=== PATIENT | male | born 1945 | race African-American/Black ===

== ENCOUNTER → 2016-07-02 | Outpatient (CLI) | payer MEDICARE, OTHER ==
[~2016-07-02] MED LIST: PRIN5TAB PO; TAMS0.4C67 PO; TRAM100T19 PO
[2016-07-02 09:39] LABS: BICARBONATE 28.1 MEQ/L (21.0-32.0); POTASSIUM 5.1 MEQ/L (3.5-5.1)
== END ==
LOC: CLAB 08:38
PROVIDERS: ATTEND Internal Medicine Nephrology
DX: N18.4 Chronic kidney disease, stage 4 (severe) (principal)
CPT/HCPCS: 36415; 80048

== ENCOUNTER → 2016-07-09 | Outpatient (CLI) | payer MEDICARE, OTHER ==
[2016-07-09 08:24] LABS: HEMATOCRIT 37.6 % (39.0-51.0); MEAN CELL VOLUME 95.2 FL (80.0-100.0); MEAN CORPUSCULAR HEMOGLOBIN 32.6 PG (27.0-34.0); MEAN CORPUSCULAR HGB CONC 34.3 % (32.0-36.0); PLATELET COUNT 243 TH/MM3 (150-450); RED BLOOD COUNT 3.95 MIL/MM3 (4.50-5.90); RED CELL DISTRIBUTION WIDTH 17.4 % (11.6-17.2); REVIEW FLAG FINAL; WHITE BLOOD COUNT 5.7 TH/MM3 (4.0-11.0)
[2016-07-09 08:29] LABS: BLOOD, URINE MOD (NEG); COMMENT (UR) CULT NOT INDICATED; CULTURE IF INDICATED CULT NOT INDICATED; GLUCOSE,URINE NEG (NEG); KETONE, URINE NEG (NEG); MUCUS URINE FEW /lpf (OCC); NITRITE,URINE NEG (NEG); PH, URINE 5.5 (5.0-8.5); SQUAMOUS EPITHELIAL CELL URINE <1 /hpf (0-5); URINE COLOR LIGHT-YELLOW (YELLW/STRAW)
[2016-07-09 08:46] LABS: BICARBONATE 24.8 MEQ/L (21.0-32.0); POTASSIUM 4.6 MEQ/L (3.5-5.1)
== END ==
LOC: CLAB 07:57
PROVIDERS: ATTEND Internal Medicine Nephrology
DX: N18.4 Chronic kidney disease, stage 4 (severe) (principal)
CPT/HCPCS: 36415; 80069; 81001; 83970; 85027

== ENCOUNTER → 2016-08-25 | Outpatient (CLI) | payer MEDICARE, OTHER ==
[~2016-08-25] MED LIST changes: +HYDR12.57 PO; +SODI325T PO; +TAMS5CAP PO
[2016-08-25 09:02] LABS: HEMATOCRIT 36.2 % (39.0-51.0); MEAN CELL VOLUME 95.1 FL (80.0-100.0); MEAN CORPUSCULAR HEMOGLOBIN 31.9 PG (27.0-34.0); MEAN CORPUSCULAR HGB CONC 33.6 % (32.0-36.0); PLATELET COUNT 197 TH/MM3 (150-450); RED BLOOD COUNT 3.81 MIL/MM3 (4.50-5.90); RED CELL DISTRIBUTION WIDTH 16.5 % (11.6-17.2); REVIEW FLAG FINAL; WHITE BLOOD COUNT 5.9 TH/MM3 (4.0-11.0)
[2016-08-25 09:29] LABS: BICARBONATE 22.7 MEQ/L (21.0-32.0); POTASSIUM 4.8 MEQ/L (3.5-5.1)
== END ==
LOC: CLAB 08:35
PROVIDERS: ATTEND Internal Medicine Nephrology
DX: E55.9 Vitamin D deficiency, unspecified (principal); N18.4 Chronic kidney disease, stage 4 (severe)
CPT/HCPCS: 36415; 80069; 82306; 83970; 85027

== ENCOUNTER → 2016-09-24 | Outpatient (CLI) | payer MEDICARE, OTHER ==
[2016-09-24 07:44] LABS: HEMATOCRIT 36.2 % (39.0-51.0); MEAN CELL VOLUME 94.9 FL (80.0-100.0); MEAN CORPUSCULAR HEMOGLOBIN 32.6 PG (27.0-34.0); MEAN CORPUSCULAR HGB CONC 34.3 % (32.0-36.0); PLATELET COUNT 194 TH/MM3 (150-450); RED BLOOD COUNT 3.82 MIL/MM3 (4.50-5.90); RED CELL DISTRIBUTION WIDTH 16.4 % (11.6-17.2); REVIEW FLAG FINAL; WHITE BLOOD COUNT 4.4 TH/MM3 (4.0-11.0)
[2016-09-24 08:04] LABS: BICARBONATE 25.5 MEQ/L (21.0-32.0); POTASSIUM 5.8 MEQ/L (3.5-5.1)
[2016-09-24 08:08] LABS: BLOOD, URINE MOD (NEG); GLUCOSE,URINE NEG (NEG); KETONE, URINE NEG (NEG); NITRITE,URINE NEG (NEG); PH, URINE 5.5 (5.0-8.5); URINE COLOR LIGHT-YELLOW (YELLW/STRAW)
== END ==
LOC: CLAB 07:16
PROVIDERS: ATTEND Internal Medicine Nephrology
DX: N18.4 Chronic kidney disease, stage 4 (severe) (principal)
CPT/HCPCS: 36415; 80069; 81001; 82570; 83970; 84156; 85027

== ENCOUNTER → 2016-09-27 | Outpatient (CLI) | payer MEDICARE, OTHER ==
[2016-09-27 09:15] LABS: BICARBONATE 24.8 MEQ/L (21.0-32.0); POTASSIUM 5.3 MEQ/L (3.5-5.1)
== END ==
LOC: CLAB 08:11
PROVIDERS: ATTEND Physician Assistant
DX: E87.5 Hyperkalemia (principal); N18.4 Chronic kidney disease, stage 4 (severe)
CPT/HCPCS: 36415; 80048

== ENCOUNTER → 2016-10-07 | Outpatient (CLI) | payer MEDICARE, OTHER ==
[2016-10-07 09:00] LABS: HEMATOCRIT 37.2 % (39.0-51.0); MEAN CELL VOLUME 94.6 FL (80.0-100.0); MEAN CORPUSCULAR HEMOGLOBIN 31.9 PG (27.0-34.0); MEAN CORPUSCULAR HGB CONC 33.7 % (32.0-36.0); PLATELET COUNT 210 TH/MM3 (150-450); RED BLOOD COUNT 3.93 MIL/MM3 (4.50-5.90); RED CELL DISTRIBUTION WIDTH 16.1 % (11.6-17.2); REVIEW FLAG FINAL; WHITE BLOOD COUNT 5.2 TH/MM3 (4.0-11.0)
[2016-10-07 09:04] LABS: BICARBONATE 25.2 MEQ/L (21.0-32.0); POTASSIUM 4.9 MEQ/L (3.5-5.1)
[2016-10-07 10:09] LABS: BLOOD, URINE SMALL (NEG); COMMENT (UR) CULT NOT INDICATED; CULTURE IF INDICATED CULT NOT INDICATED; GLUCOSE,URINE NEG (NEG); KETONE, URINE NEG (NEG); MUCUS URINE FEW /lpf (OCC); NITRITE,URINE NEG (NEG); PH, URINE 5.5 (5.0-8.5); URINE COLOR LIGHT-YELLOW (YELLW/STRAW)
== END ==
LOC: CLAB 08:23
PROVIDERS: ATTEND Internal Medicine Nephrology
DX: E87.5 Hyperkalemia (principal); N18.4 Chronic kidney disease, stage 4 (severe)
CPT/HCPCS: 36415; 80069; 81001; 85027

== ENCOUNTER → 2016-10-18 | Outpatient (CLI) | payer MEDICARE, OTHER ==
[2016-10-18 09:21] LABS: BICARBONATE 23.4 MEQ/L (21.0-32.0); POTASSIUM 4.9 MEQ/L (3.5-5.1)
== END ==
LOC: CLAB 08:21
PROVIDERS: ATTEND Internal Medicine Nephrology
DX: E87.5 Hyperkalemia (principal); N18.4 Chronic kidney disease, stage 4 (severe)
CPT/HCPCS: 36415; 80048

== ENCOUNTER → 2016-11-26 | Outpatient (CLI) | payer MEDICARE, OTHER ==
[2016-11-26 08:00] LABS: HEMATOCRIT 36.4 % (39.0-51.0); MEAN CELL VOLUME 94.4 FL (80.0-100.0); MEAN CORPUSCULAR HEMOGLOBIN 32.1 PG (27.0-34.0); PLATELET COUNT 186 TH/MM3 (150-450); RED BLOOD COUNT 3.86 MIL/MM3 (4.50-5.90); RED CELL DISTRIBUTION WIDTH 15.8 % (11.6-17.2); REVIEW FLAG FINAL; WHITE BLOOD COUNT 5.2 TH/MM3 (4.0-11.0)
[2016-11-26 08:04] LABS: BLOOD, URINE SMALL (NEG); COMMENT (UR) CULT NOT INDICATED; CULTURE IF INDICATED CULT NOT INDICATED; GLUCOSE,URINE NEG (NEG); KETONE, URINE NEG (NEG); MUCUS URINE FEW /lpf (OCC); NITRITE,URINE NEG (NEG); PH, URINE 5.5 (5.0-8.5); SQUAMOUS EPITHELIAL CELL URINE <1 /hpf (0-5); URINE COLOR LIGHT-YELLOW (YELLW/STRAW)
[2016-11-26 08:21] LABS: BICARBONATE 18.4 MEQ/L (21.0-32.0); POTASSIUM 5.3 MEQ/L (3.5-5.1)
== END ==
LOC: CLAB 07:24
PROVIDERS: ATTEND Physician Assistant
DX: E55.9 Vitamin D deficiency, unspecified (principal); N18.4 Chronic kidney disease, stage 4 (severe)
CPT/HCPCS: 36415; 80069; 81001; 82306; 82570; 83970; 84156; 85027

== ENCOUNTER → 2016-12-30 | Outpatient (CLI) | payer MEDICARE, OTHER ==
[~2016-12-30] MED LIST changes: +ACET-822 PO; +ALLO100T PO; +CHOL1CAP34 PO; +DILT120T PO; +HYDR25TA5 PO; -PRIN5TAB PO; +SODI650T PO; -TAMS0.4C67 PO; -TRAM100T19 PO; +TUMS500C CHEW
[2016-12-30 10:26] LABS: HEMATOCRIT 35.5 % (39.0-51.0); MEAN CELL VOLUME 94.3 FL (80.0-100.0); MEAN CORPUSCULAR HGB CONC 32.8 % (32.0-36.0); PLATELET COUNT 200 TH/MM3 (150-450); RED BLOOD COUNT 3.76 MIL/MM3 (4.50-5.90); RED CELL DISTRIBUTION WIDTH 16.5 % (11.6-17.2); REVIEW FLAG FINAL; WHITE BLOOD COUNT 6.8 TH/MM3 (4.0-11.0)
[2016-12-30 10:32] LABS: BACTERIA, URINE OCC /hpf; BLOOD, URINE MOD (NEG); COMMENT (UR) CULT NOT INDICATED; CULTURE IF INDICATED CULT NOT INDICATED; GLUCOSE,URINE NEG (NEG); KETONE, URINE NEG (NEG); MUCUS URINE FEW /lpf (OCC); NITRITE,URINE NEG (NEG); PH, URINE 5.5 (5.0-8.5); SQUAMOUS EPITHELIAL CELL URINE <1 /hpf (0-5); URINE COLOR YELLOW (YELLW/STRAW)
[2016-12-30 10:54] LABS: BICARBONATE 25.6 MEQ/L (21.0-32.0); POTASSIUM 4.6 MEQ/L (3.5-5.1)
== END ==
LOC: CLAB 10:03
PROVIDERS: ATTEND Physician Assistant
DX: N18.5 Chronic kidney disease, stage 5 (principal)
CPT/HCPCS: 36415; 80069; 81001; 82570; 84156; 85027

== ENCOUNTER → 2017-01-04 | Day surgery (SDC) | payer MEDICARE, OTHER ==
[~2017-01-04] VITALS: Ht 180.3 cm; Wt 80.6 kg
[~2017-01-04] MED LIST changes: +ACETAMINOPHEN 1000 MG/100 ML VIAL IV ONE; +ACETAMINOPHEN/HYDROcodone 325 MG/7.5 MG TAB ONE; +ACETAMINOPHEN/HYDROcodone 325 MG/7.5 MG TAB PO PRN; +BUPIVACAINE/EPINEPHRINE 0.5% PF 30 ML VIAL INFIL ONE; +CHLORHEXIDINE GLUCONATE 2 % 1 PACK (2 CLOTHS) TOPICAL PRN; +DO NOT ADM ANY ANTICOAGULANT DRUGS PRN; +FAMOTIDINE 20 MG/2 ML VIAL ONE; +HEPARIN SODIUM - SQ 10,000 UNITS/ML VIAL OTHER ONE; -HYDR12.57 PO; +INSULIN HUMAN REGULAR 1,000 UNITS/10 ML VIAL SQ PRN; +LACTATED RINGER'S 1000 ML INJ 1,000 ML IV ONE; +LACTATED RINGER'S 1000 ML IV PRN; +METOPROLOL TARTRATE 25 MG TAB PO PRN; +MORPHINE SULFATE 4 MG/ML INJ ONE; +ONDANSETRON HCL 4 MG/2 ML VIAL IV PUSH ONE; +POVIDONE IODINE 5% (ANTISEPSIS KIT) 4 APPLICATIONS EACH NARE PRN; +PROPOFOL 200 MG/20 ML AMP IV ONE; -SODI325T PO; +SODIUM CHLORID 0.9% 500 ML IV PRN; +SODIUM CHLORIDE 0.9% INJ 100 ML ONE; +ceFAZolin 1,000 MG/NS 100 ML IV SCH; +ceFAZolin INJ 1,000 MG VIAL ONE
[2017-01-04 12:28] VITALS: BP 143/87; PULSE 74; RESP 18; TEMP 98; O2SAT 99
[2017-01-04 12:45] LABS: BASOPHIL # 0.1 TH/MM3 (0-0.2); EOSINOPHIL # 0.1 TH/MM3 (0-0.4); EOSINOPHIL % 2.2 % (0.0-4.0); HEMO FLAGS DIFF FINAL; LYMPH % 21.7 % (9.0-44.0); LYMPHOCYTE # 1.3 TH/MM3 (1.0-4.8); MEAN CELL VOLUME 94.4 FL (80.0-100.0); MEAN CORPUSCULAR HEMOGLOBIN 32.3 PG (27.0-34.0); MEAN CORPUSCULAR HGB CONC 34.2 % (32.0-36.0); NEUT % 69.1 % (16.0-70.0); PLATELET COUNT 215 TH/MM3 (150-450); RED CELL DISTRIBUTION WIDTH 16.5 % (11.6-17.2); WHITE BLOOD COUNT 5.9 TH/MM3 (4.0-11.0)
--- NOTE | 2017-01-04 13:16 | EKG ---
Date Performed: 01/04/2017 Time Performed: 11:53:31 PTAGE: 71 years EKG: Sinus rhythm WITH MARKED SINUS ARRHYTHMIA BORDERLINE ECG PREVIOUS TRACING : 08/30/2013 09.04 Compared to prior tracing no significant change DOCTOR: Enrique Gale Interpretating Date/Time 01/04/2017 13:16:06
[2017-01-04 16:51] VITALS: BP 132/84; PULSE 80; RESP 20; TEMP 96.8; O2SAT 99
--- NOTE | 2017-01-04 23:33 | MP ---
cc: SWATHI AARON M.D. DATE OF SURGERY: 01/04/2017 PREOPERATIVE DIAGNOSIS: Chronic disease with need for permanent hemodialysis access. POSTOPERATIVE DIAGNOSIS Chronic disease with need for permanent hemodialysis access. SURGEON Swathi Aaron MD. [employer] IN[employer]CTOR VALERIA Mosley ANESTHESIA Local MAC DESCRIPTION OF OPERATIVE PROCEDURE: With the patient in the supine position and under IV sedation the right arm was prepped and draped in sterile fashion. One gram of Ancef was administered intravenously and following a protocol time-out, the skin and subcutaneous tissue along with the proposed incisional area, preemptively infiltrated with 0.5% Marcaine with epinephrine. A curvilinear incision was performed along the medial supra-antecubital region through which the cephalic vein and brachial artery were circumferentially mobilized. The vein was ligated distally with 4-0 silk, transected proximal to the ligature, spatulated on end, flushed with heparinized saline and occluded with Yasargil clip. The brachial artery was occluded proximally and distally with Yasargil clips. A vertical arteriotomy was performed along the anterolateral surface. The artery was flushed proximally and distally with heparinized saline. An end-to-side anastomosis was accomplished between the vein and arteriotomy with continuous 7-0 Prolene. The occluding Yasargil clips were removed, reestablishing pulsatile flow within the brachial artery as well as into the cephalic vein. Strict hemostasis was assured along with normal perfusion within the right hand. The incision was closed by reapproximating subcutaneous tissue with interrupted 4-0 Monocryl and skin with continuous subcuticular 5-0 Monocryl, reinforced with Steri-Strips and covered with sterile gauze. Instrument, needle and sponge count were correct x2. There were no operative complications. The patient was taken to the Recovery Room in stable condition, having tolerated the procedure well. Swathi Aaron MD JTS/GURPREET /5:38 PM /11:27 PM
== END | disposition home or self-care (01) ==
LOC: HSDC 11:25
PROVIDERS: ATTEND Surgery Vascular Surgery
DX: I12.9 Hypertensive chronic kidney disease with stage 1 through stage 4 chronic kidney disease, or unspecified chronic kidney disease (principal); N18.4 Chronic kidney disease, stage 4 (severe); I49.8 Other specified cardiac arrhythmias; E78.5 Hyperlipidemia, unspecified; Z85.46 Personal history of malignant neoplasm of prostate; Z79.899 Other long term (current) drug therapy; Z87.891 Personal history of nicotine dependence
CPT/HCPCS: 01844; 36818; 85025; 93005; J0131; J0690; J1644; J2270; J2405; J3010; J7120

== ENCOUNTER → 2017-01-28 | Outpatient (CLI) | payer MEDICARE, OTHER ==
[~2017-01-28] MED LIST changes: -ACETAMINOPHEN 1000 MG/100 ML VIAL IV ONE; -ACETAMINOPHEN/HYDROcodone 325 MG/7.5 MG TAB ONE; -ACETAMINOPHEN/HYDROcodone 325 MG/7.5 MG TAB PO PRN; -BUPIVACAINE/EPINEPHRINE 0.5% PF 30 ML VIAL INFIL ONE; -CHLORHEXIDINE GLUCONATE 2 % 1 PACK (2 CLOTHS) TOPICAL PRN; -DO NOT ADM ANY ANTICOAGULANT DRUGS PRN; -FAMOTIDINE 20 MG/2 ML VIAL ONE; -HEPARIN SODIUM - SQ 10,000 UNITS/ML VIAL OTHER ONE; -INSULIN HUMAN REGULAR 1,000 UNITS/10 ML VIAL SQ PRN; -LACTATED RINGER'S 1000 ML INJ 1,000 ML IV ONE; -LACTATED RINGER'S 1000 ML IV PRN; -METOPROLOL TARTRATE 25 MG TAB PO PRN; -MORPHINE SULFATE 4 MG/ML INJ ONE; -ONDANSETRON HCL 4 MG/2 ML VIAL IV PUSH ONE; -POVIDONE IODINE 5% (ANTISEPSIS KIT) 4 APPLICATIONS EACH NARE PRN; -PROPOFOL 200 MG/20 ML AMP IV ONE; -SODIUM CHLORID 0.9% 500 ML IV PRN; -SODIUM CHLORIDE 0.9% INJ 100 ML ONE; -ceFAZolin 1,000 MG/NS 100 ML IV SCH; -ceFAZolin INJ 1,000 MG VIAL ONE
[2017-01-28 11:52] LABS: HEMATOCRIT 36.9 % (39.0-51.0); MEAN CELL VOLUME 95.3 FL (80.0-100.0); MEAN CORPUSCULAR HEMOGLOBIN 32.4 PG (27.0-34.0); PLATELET COUNT 202 TH/MM3 (150-450); RED BLOOD COUNT 3.87 MIL/MM3 (4.50-5.90); RED CELL DISTRIBUTION WIDTH 17.4 % (11.6-17.2); REVIEW FLAG FINAL; WHITE BLOOD COUNT 6.2 TH/MM3 (4.0-11.0)
[2017-01-28 12:10] LABS: BACTERIA, URINE RARE /hpf; BLOOD, URINE MOD (NEG); COMMENT (UR) CULT NOT INDICATED; CULTURE IF INDICATED CULT NOT INDICATED; GLUCOSE,URINE NEG (NEG); KETONE, URINE NEG (NEG); NITRITE,URINE NEG (NEG); PH, URINE 5.5 (5.0-8.5); URINE COLOR YELLOW (YELLW/STRAW)
[2017-01-28 12:16] LABS: BICARBONATE 26.7 MEQ/L (21.0-32.0)
== END ==
LOC: CLAB 11:23
PROVIDERS: ATTEND Physician Assistant
DX: E55.9 Vitamin D deficiency, unspecified (principal); N18.5 Chronic kidney disease, stage 5; N25.81 Secondary hyperparathyroidism of renal origin
CPT/HCPCS: 36415; 80069; 81001; 82306; 82570; 83970; 84156; 85027

== ENCOUNTER → 2017-03-03 | Outpatient (CLI) | payer MEDICARE, OTHER ==
[2017-03-03 09:59] LABS: BACTERIA, URINE RARE /hpf; BLOOD, URINE MOD (NEG); COMMENT (UR) CULT NOT INDICATED; CULTURE IF INDICATED CULT NOT INDICATED; GLUCOSE,URINE NEG (NEG); KETONE, URINE NEG (NEG); MUCUS URINE FEW /lpf (OCC); NITRITE,URINE NEG (NEG); PH, URINE 5.5 (5.0-8.5); URINE COLOR LIGHT-YELLOW (YELLW/STRAW)
[2017-03-03 10:00] LABS: HEMATOCRIT 35.4 % (39.0-51.0); MEAN CELL VOLUME 95.2 FL (80.0-100.0); MEAN CORPUSCULAR HEMOGLOBIN 31.8 PG (27.0-34.0); MEAN CORPUSCULAR HGB CONC 33.4 % (32.0-36.0); PLATELET COUNT 208 TH/MM3 (150-450); RED BLOOD COUNT 3.72 MIL/MM3 (4.50-5.90); RED CELL DISTRIBUTION WIDTH 16.8 % (11.6-17.2); REVIEW FLAG FINAL; WHITE BLOOD COUNT 7.5 TH/MM3 (4.0-11.0)
[2017-03-03 10:17] LABS: BICARBONATE 24.7 MEQ/L (21.0-32.0); POTASSIUM 4.4 MEQ/L (3.5-5.1)
== END ==
LOC: CLAB 09:34
PROVIDERS: ATTEND Physician Assistant
DX: E55.9 Vitamin D deficiency, unspecified (principal); N18.5 Chronic kidney disease, stage 5
CPT/HCPCS: 36415; 80069; 81001; 82306; 82570; 83970; 84156; 85027

== ENCOUNTER → 2017-04-08 | Outpatient (CLI) | payer MEDICARE, OTHER ==
[2017-04-08 08:55] LABS: BLOOD, URINE MOD (NEG); GLUCOSE,URINE NEG (NEG); KETONE, URINE NEG (NEG); NITRITE,URINE NEG (NEG); PH, URINE 5.5 (5.0-8.5); URINE COLOR LIGHT-YELLOW (YELLW/STRAW)
[2017-04-08 08:59] LABS: MEAN CELL VOLUME 95.5 FL (80.0-100.0); MEAN CORPUSCULAR HEMOGLOBIN 32.3 PG (27.0-34.0); MEAN CORPUSCULAR HGB CONC 33.8 % (32.0-36.0); PLATELET COUNT 185 TH/MM3 (150-450); RED BLOOD COUNT 3.77 MIL/MM3 (4.50-5.90); RED CELL DISTRIBUTION WIDTH 17.2 % (11.6-17.2); REVIEW FLAG FINAL; WHITE BLOOD COUNT 4.9 TH/MM3 (4.0-11.0)
[2017-04-08 09:24] LABS: BICARBONATE 25.9 MEQ/L (21.0-32.0); POTASSIUM 4.6 MEQ/L (3.5-5.1)
== END ==
LOC: CLAB 08:04
PROVIDERS: ATTEND Physician Assistant
DX: N18.5 Chronic kidney disease, stage 5 (principal)
CPT/HCPCS: 36415; 80069; 81001; 82306; 82570; 83970; 84156; 85027

== ENCOUNTER → 2017-05-11 | Outpatient (CLI) | payer MEDICARE, OTHER ==
[2017-05-11 09:07] LABS: HEMATOCRIT 36.4 % (39.0-51.0); MEAN CELL VOLUME 94.9 FL (80.0-100.0); MEAN CORPUSCULAR HEMOGLOBIN 31.9 PG (27.0-34.0); MEAN CORPUSCULAR HGB CONC 33.6 % (32.0-36.0); PLATELET COUNT 202 TH/MM3 (150-450); RED BLOOD COUNT 3.83 MIL/MM3 (4.50-5.90); RED CELL DISTRIBUTION WIDTH 17.1 % (11.6-17.2); REVIEW FLAG FINAL; WHITE BLOOD COUNT 5.4 TH/MM3 (4.0-11.0)
[2017-05-11 10:00] LABS: BICARBONATE 23.9 MEQ/L (21.0-32.0); POTASSIUM 4.3 MEQ/L (3.5-5.1)
== END ==
LOC: CLAB 08:46
PROVIDERS: ATTEND Internal Medicine Nephrology
DX: N25.81 Secondary hyperparathyroidism of renal origin (principal); N18.5 Chronic kidney disease, stage 5
CPT/HCPCS: 36415; 80069; 83970; 85027

== ENCOUNTER → 2017-05-24 | Outpatient (CLI) | payer MEDICARE, OTHER ==
[2017-05-24 09:54] LABS: BICARBONATE 24.2 MEQ/L (21.0-32.0)
[2017-05-24 11:43] LABS: HEPATITIS B SURFACE ANTIBODY 0 mIU/mL
== END ==
LOC: CLAB 08:51
PROVIDERS: ATTEND Physician Assistant
DX: N18.5 Chronic kidney disease, stage 5 (principal)
CPT/HCPCS: 36415; 80069; 86317; 86803; 87340

== ENCOUNTER → 2017-06-30 | Outpatient (CLI) | payer MEDICARE, OTHER ==
[2017-06-30 10:45] LABS: HEMATOCRIT 36.7 % (39.0-51.0); HEMOGLOBIN 12.5 GM/DL (13.0-17.0); MEAN CELL VOLUME 94.4 FL (80.0-100.0); MEAN CORPUSCULAR HEMOGLOBIN 32.1 PG (27.0-34.0); MEAN PLATELET VOLUME 7.7 FL (7.0-11.0); PLATELET COUNT 219 TH/MM3 (150-450); RED BLOOD COUNT 3.89 MIL/MM3 (4.50-5.90); RED CELL DISTRIBUTION WIDTH 18.4 % (11.6-17.2); WHITE BLOOD COUNT 5.5 TH/MM3 (4.0-11.0)
[2017-06-30 10:52] LABS: BILIRUBIN, URINE NEG (NEG); BLOOD, URINE MOD (NEG); GLUCOSE,URINE NEG (NEG); KETONE, URINE NEG (NEG); MUCUS URINE FEW /lpf (OCC); NITRITE,URINE NEG (NEG); PH, URINE 5.5 (5.0-8.5); URINE COLOR YELLOW (YELLW/STRAW); URINE LEUKOCYTE ESTERASE NEG (NEG)
[2017-06-30 10:57] LABS: ALBUMIN 3.6 GM/DL (3.4-5.0); BICARBONATE 28.9 MEQ/L (21.0-32.0); CALCIUM 8.8 MG/DL (8.5-10.1); CREATININE 5.09 MG/DL (0.60-1.30); PHOSPHORUS 4.2 MG/DL (2.5-4.9)
== END ==
LOC: CLAB 10:21
PROVIDERS: ATTEND Physician Assistant
DX: N18.5 Chronic kidney disease, stage 5 (principal)
CPT/HCPCS: 36415; 80069; 81001; 83970; 85027

== ENCOUNTER → 2017-08-12 | Outpatient (CLI) | payer MEDICARE, OTHER ==
[2017-08-12 09:28] LABS: HEMATOCRIT 36.9 % (39.0-51.0); HEMOGLOBIN 12.3 GM/DL (13.0-17.0); MEAN CELL VOLUME 94.7 FL (80.0-100.0); MEAN CORPUSCULAR HEMOGLOBIN 31.6 PG (27.0-34.0); MEAN CORPUSCULAR HGB CONC 33.3 % (32.0-36.0); MEAN PLATELET VOLUME 8.1 FL (7.0-11.0); PLATELET COUNT 235 TH/MM3 (150-450); RED BLOOD COUNT 3.89 MIL/MM3 (4.50-5.90); RED CELL DISTRIBUTION WIDTH 18.5 % (11.6-17.2); WHITE BLOOD COUNT 5.6 TH/MM3 (4.0-11.0)
[2017-08-12 09:31] LABS: BILIRUBIN, URINE NEG (NEG); BLOOD, URINE SMALL (NEG); GLUCOSE,URINE NEG (NEG); KETONE, URINE NEG (NEG); MUCUS URINE FEW /lpf (OCC); NITRITE,URINE NEG (NEG); SQUAMOUS EPITHELIAL CELL URINE <1 /hpf (0-5); URINE COLOR LIGHT-YELLOW (YELLW/STRAW); URINE LEUKOCYTE ESTERASE NEG (NEG)
[2017-08-12 09:59] LABS: ALBUMIN 3.6 GM/DL (3.4-5.0); BICARBONATE 26.6 MEQ/L (21.0-32.0); CALCIUM 8.6 MG/DL (8.5-10.1); CREATININE 5.23 MG/DL (0.60-1.30); PHOSPHORUS 5.3 MG/DL (2.5-4.9)
== END ==
LOC: CLAB 08:59
PROVIDERS: ATTEND Physician Assistant
DX: N18.5 Chronic kidney disease, stage 5 (principal)
CPT/HCPCS: 36415; 80069; 81001; 82570; 83970; 84156; 85027

== ENCOUNTER → 2017-09-16 | Outpatient (CLI) | payer MEDICARE, OTHER ==
[2017-09-16 09:21] LABS: HEMATOCRIT 36.8 % (39.0-51.0); HEMOGLOBIN 12.3 GM/DL (13.0-17.0); MEAN CORPUSCULAR HEMOGLOBIN 31.8 PG (27.0-34.0); MEAN CORPUSCULAR HGB CONC 33.5 % (32.0-36.0); MEAN PLATELET VOLUME 8.4 FL (7.0-11.0); PLATELET COUNT 226 TH/MM3 (150-450); RED BLOOD COUNT 3.87 MIL/MM3 (4.50-5.90); RED CELL DISTRIBUTION WIDTH 17.2 % (11.6-17.2); WHITE BLOOD COUNT 5.2 TH/MM3 (4.0-11.0)
[2017-09-16 09:25] LABS: BACTERIA, URINE RARE /hpf; BILIRUBIN, URINE NEG (NEG); BLOOD, URINE MOD (NEG); GLUCOSE,URINE NEG (NEG); KETONE, URINE NEG (NEG); MUCUS URINE FEW /lpf (OCC); NITRITE,URINE NEG (NEG); PH, URINE 5.5 (5.0-8.5); URINE COLOR LIGHT-YELLOW (YELLW/STRAW); URINE LEUKOCYTE ESTERASE NEG (NEG)
[2017-09-16 09:44] LABS: PHOSPHORUS 4.3 MG/DL (2.5-4.9)
[2017-09-16 09:53] LABS: ALBUMIN 3.6 GM/DL (3.4-5.0); BICARBONATE 26.3 MEQ/L (21.0-32.0); CALCIUM 8.6 MG/DL (8.5-10.1); CREATININE 5.24 MG/DL (0.60-1.30)
== END ==
LOC: CLAB 08:54
PROVIDERS: ATTEND Physician Assistant
DX: N18.5 Chronic kidney disease, stage 5 (principal)
CPT/HCPCS: 36415; 80069; 81001; 82570; 83970; 84156; 85027

== ENCOUNTER → 2017-10-27 | Outpatient (CLI) | payer MEDICARE, OTHER ==
[2017-10-27 10:06] LABS: HEMATOCRIT 36.8 % (39.0-51.0); HEMOGLOBIN 12.4 GM/DL (13.0-17.0); MEAN CELL VOLUME 93.3 FL (80.0-100.0); MEAN CORPUSCULAR HEMOGLOBIN 31.3 PG (27.0-34.0); MEAN CORPUSCULAR HGB CONC 33.6 % (32.0-36.0); MEAN PLATELET VOLUME 7.7 FL (7.0-11.0); PLATELET COUNT 214 TH/MM3 (150-450); RED BLOOD COUNT 3.95 MIL/MM3 (4.50-5.90); WHITE BLOOD COUNT 5.7 TH/MM3 (4.0-11.0)
[2017-10-27 10:43] LABS: PHOSPHORUS 4.6 MG/DL (2.5-4.9)
[2017-10-27 11:03] LABS: ALBUMIN 3.7 GM/DL (3.4-5.0); BICARBONATE 22.5 MEQ/L (21.0-32.0); CALCIUM 8.7 MG/DL (8.5-10.1); CREATININE 5.71 MG/DL (0.60-1.30)
== END ==
LOC: CLAB 09:29
PROVIDERS: ATTEND Internal Medicine Nephrology
DX: N25.81 Secondary hyperparathyroidism of renal origin (principal); N18.5 Chronic kidney disease, stage 5
CPT/HCPCS: 36415; 80069; 83970; 85027

== ENCOUNTER → 2017-12-01 | Outpatient (CLI) | payer MEDICARE, OTHER ==
[2017-12-01 09:39] LABS: HEMATOCRIT 37.9 % (39.0-51.0); HEMOGLOBIN 12.5 GM/DL (13.0-17.0); MEAN CORPUSCULAR HEMOGLOBIN 31.1 PG (27.0-34.0); MEAN CORPUSCULAR HGB CONC 33.1 % (32.0-36.0); MEAN PLATELET VOLUME 7.7 FL (7.0-11.0); PLATELET COUNT 208 TH/MM3 (150-450); RED BLOOD COUNT 4.03 MIL/MM3 (4.50-5.90); WHITE BLOOD COUNT 4.9 TH/MM3 (4.0-11.0)
[2017-12-01 09:40] LABS: BILIRUBIN, URINE NEG (NEG); BLOOD, URINE SMALL (NEG); GLUCOSE,URINE NEG (NEG); KETONE, URINE NEG (NEG); NITRITE,URINE NEG (NEG); PH, URINE 5.5 (5.0-8.5); SQUAMOUS EPITHELIAL CELL URINE <1 /hpf (0-5); URINE COLOR LIGHT-YELLOW (YELLW/STRAW); URINE LEUKOCYTE ESTERASE NEG (NEG)
[2017-12-01 10:07] LABS: PHOSPHORUS 5.2 MG/DL (2.5-4.9)
[2017-12-01 10:12] LABS: ALBUMIN 3.8 GM/DL (3.4-5.0); BICARBONATE 26.1 MEQ/L (21.0-32.0); CALCIUM 8.7 MG/DL (8.5-10.1); CREATININE 5.94 MG/DL (0.60-1.30)
== END ==
LOC: CLAB 09:00
PROVIDERS: ATTEND Physician Assistant
DX: N18.5 Chronic kidney disease, stage 5 (principal)
CPT/HCPCS: 36415; 80069; 81001; 82570; 83970; 84156; 85027